=== PATIENT | female | born 1945 | race Two or more races ===

== ENCOUNTER 2016-06-08 17:38 | Emergency (ER) | payer MEDICARE, BC ==
[2016-06-08 17:42] VITALS: RESP 20
--- NOTE | 2016-06-08 18:50 | ED ---
Extremity Problem HPI - General Chief complaint: Extremity Problem,Nontraumatic Stated complaint: leg pain Time Seen by Provider: 06/08/16 18:22 Source: patient Mode of arrival: wheelchair Limitations: no limitations - History of Present Illness Initial comments: 70-year-old female patient presents emergency department for evaluation of right calf pain, redness, and swelling. That symptoms started over the last couple of days. Patient has any recent travel, prolonged immobility, or injury to the leg. He states the pain increases when she walks, or touches the area. She denies any headache, dizziness, weakness, chest pain, shortness of breath, abdominal pain, nausea, vomiting, constipation, diarrhea, dysuria, hematuria or urinary urgency, or urinary frequency. Patient denies any fever or chills. Denies any numbness or tingling to the extremity. - Related Data Home Medications Medication Instructions Recorded Confirmed Aspirin 325 mg PO DAILY PRN 06/08/16 06/08/16 Previous Rx's Medication Instructions Recorded Ibuprofen [Motrin] 600 mg PO Q8HR PRN #30 tab 06/08/16 Allergies Allergy/AdvReac Type Severity Reaction Status Date / Time metronidazole Allergy Unknown Verified 06/08/16 18:29 Review of Systems ROS Statement: Those systems with pertinent positive or pertinent negative responses have been documented in the HPI. ROS Other: All systems not noted in ROS Statement are negative. Past Medical History Past Medical History: Thyroid Disorder History of Any Multi-Drug Resistant Organisms: None Reported Past Surgical History: Hysterectomy, Tonsillectomy Past Psychological History: No Psychological Hx Reported Smoking Status: Current every day smoker Past Alcohol Use History: None Reported Past Drug Use History: None Reported General Exam Limitations: no limitations General appearance: alert, in no apparent distress Eye exam: Present: normal appearance, PERRL, EOMI. Absent: scleral icterus, conjunctival injection, periorbital swelling ENT exam: Present: normal exam, mucous membranes moist Neck exam: Present: normal inspection. Absent: tenderness, meningismus, lymphadenopathy Respiratory exam: Present: normal lung sounds bilaterally. Absent: respiratory distress, wheezes, rales, rhonchi, stridor Cardiovascular Exam: Present: regular rate, normal rhythm, normal heart sounds. Absent: systolic murmur, diastolic murmur, rubs, gallop, clicks GI/Abdominal exam: Present: soft, normal bowel sounds. Absent: distended, tenderness, guarding, rebound, rigid Extremities exam: Present: full ROM, normal capillary refill, other (Tenderness over palpable cord on the right medial calf. Overlying erythema.). Absent: pedal edema, joint swelling, calf tenderness Back exam: Present: normal inspection Neurological exam: Present: alert, oriented X3, CN II-XII intact Psychiatric exam: Present: normal affect, normal mood Skin exam: Present: warm, dry, intact, normal color. Absent: rash Course Vital Signs 06/08/16 17:40 Temperature 98.1 F Pulse Rate 81 Respiratory 20 Rate Blood Pressure 117/69 O2 Sat by Pulse 99 Oximetry Medical Decision Making - Medical Decision Making 4-year-old female patient presented with complaints of right calf pain, erythema , and tenderness. Ultrasound venous duplex of the right lower extremity reveals a superficial venous thrombus. Patient instructed to utilize ibuprofen , warm compresses and compression stockings. Patient instructed to follow up with vascular. Instructed to return for any new, worsening, or concerning symptoms. Patient verbalizes understanding and agrees this plan. - Radiology Data Radiology results: report reviewed Ultrasound is duplex of the right lower extremity shows no evidence of deep venous emesis. There is some minimal superficial vein thrombus and the calf. Disposition Clinical Impression: Acute superficial venous thrombosis of right lower extremity Disposition: HOME SELF-CARE Condition: Stable Instructions: Superficial Thrombophlebitis (ED) Additional Instructions: Warm compresses to the site. Take NSAIDs for pain relief. Utilize compression stockings. Prescriptions: Ibuprofen [Motrin] 600 mg PO Q8HR PRN #30 tab PRN Reason: Pain Referrals: Ping Garcia MD [Primary Care Provider] - 1-2 days Scott Jeffery MD [STAFF PHYSICIAN] - 1-2 days Time of Disposition: 19:54
--- NOTE | 2016-06-08 19:47 | US ---
EXAMINATION TYPE: US venous doppler duplex LE RT DATE OF EXAM: 06/08/2016 7:42 PM COMPARISON: No previous CLINICAL HISTORY: Pain. Right calf area of pain and swelling SIDE PERFORMED: Right VESSELS IMAGED: External Iliac Vein (EIV) Common Femoral Vein Deep Femoral Vein Greater Saphenous Vein * Femoral Vein Popliteal Vein Small Saphenous Vein * Proximal Calf Veins (* superficial vessels) Right Leg: Appears negative for DVT, scanned right calf area of pain: thrombus seen within superfici al vessel IMPRESSION: No evidence of deep venous thrombosis. There is some minimal superficial vein thrombus i n the calf.
[2016-06-08 19:59] VITALS: BP 121/60; PULSE 77; TEMP 98.7
== END 2016-06-08 20:03 | disposition home or self-care (01) ==
LOC: EC 17:38
DX: I82.811 Embolism and thrombosis of superficial veins of right lower extremity (principal); F17.200 Nicotine dependence, unspecified, uncomplicated; Z88.1 Allergy status to other antibiotic agents
CPT/HCPCS: 99283

== ENCOUNTER 2016-11-05 07:34 | Day surgery (SDC) | payer MEDICARE, BC ==
[2016-10-31 13:19] VITALS: BMI 21.9
[~2016-11-05 07:34] MED LIST: LACTATED RINGERS 1,000 ML IV SCH
[2016-11-05 08:15] VITALS: TEMP 97
[2016-11-05] MEDS ORDERED: LIDOCAINE 1% 20 ML VIAL (10MG/ML) FOR IV START INTRADERMA ONE (08:25)
[2016-11-05] MEDS ORDERED: PROPOFOL 10 MG/ML 20 ML VIAL IV ONE (08:27)
--- NOTE | 2016-11-05 08:31 | P.GSHP ---
History of Present Illness H&P Date: 11/05/16 CHIEF COMPLAINT: Colon screen HISTORY OF PRESENT ILLNESS: The patient is a 71-year-old female who presents for colon screen. Lower endoscopy was offered for further evaluation and management. PAST MEDICAL HISTORY: Please see list. PAST SURGICAL HISTORY: Please see list. MEDICATIONS: Please see list. ALLERGIES: Please see list. SOCIAL HISTORY: No illicit drug use FAMILY HISTORY: No reports of Crohn disease or ulcerative colitis. REVIEW OF ORGAN SYSTEMS: CONSTITUTIONAL: No reports of fevers or chills. PHYSICAL EXAM: VITAL SIGNS: Stable GENERAL: Well-developed pleasant in no acute distress. HEENT: No scleral icterus. Extraocular movements grossly intact. Moist buccal mucosa. NECK: Supple without lymphadenopathy. CHEST: Unlabored respirations. Equal bilateral excursions. CARDIOVASCULAR: Regular rate and rhythm. Distal 2+ pulses. ABDOMEN: Soft, nontender, nondistended. MUSCULOSKELETAL: No clubbing, cyanosis, or edema. ASSESSMENT: 1. Colon screen. PLAN: 1. Recommend proceeding with a lower endoscopy Past Medical History Past Medical History: Deep Vein Thrombosis (DVT) Additional Past Medical History / Comment(s): DVT RLE 05/2016 History of Any Multi-Drug Resistant Organisms: None Reported Past Surgical History: Hysterectomy, Tonsillectomy Additional Past Surgical History / Comment(s): PARTIAL THYROIDECTOMY. COLONOSCOPY. BILAT CATARACTS REMOVED Past Anesthesia/Blood Transfusion Reactions: No Reported Reaction Smoking Status: Current every day smoker - Past Family History Mother Family Medical History: No Reported History Medications and Allergies Home Medications Medication Instructions Recorded Confirmed Type Aspirin [Adult Low Dose Aspirin EC] 81 mg PO DAILY 10/31/16 10/31/16 History Allergies Allergy/AdvReac Type Severity Reaction Status Date / Time metronidazole Allergy Rash/Hives Verified 10/31/16 13:15 Surgical - Exam Vital Signs Temp Pulse Resp BP Pulse Ox 97.0 F L 65 18 115/68 97 11/05/16 08:13 11/05/16 08:13 11/05/16 08:13 11/05/16 08:13 11/05/16 08:13
--- NOTE | 2016-11-05 08:48 | P.PCN ---
Date of Procedure: 11/05/16 Preoperative Diagnosis: Postoperative Diagnosis: Procedure(s) Performed: Implants: Indications for Procedure: Operative Findings: Description of Procedure: PREOPERATIVE DIAGNOSIS: Colonoscopy screening. Personal history of colon polyps. POSTOPERATIVE DIAGNOSIS: Colonoscopy screening. Diverticulosis, scattered. Personal history of colon polyps. OPERATION: Colonoscopy to the ileocecal valve and appendiceal orifice. SURGEON: Cheri Bergman MD. ANESTHESIA: MAC. INDICATIONS: The patient is a 71-year-old female who presents for colonoscopy screening. Last colonoscopy was 3 years ago. Benefits and risks were described and informed consent was obtained. DESCRIPTION OF PROCEDURE: The patient had undergone Gatorade, MiraLAX and Dulcolax prep. She had been brought into the operating room and laid in the left lateral decubitus position. After adequate intravenous sedation, the rectum was examined with 2% lidocaine jelly. No external hemorrhoids were encountered. The rectal tone was within normal limits. No lesions were palpated in the rectal vault. An Olympus colonoscope was advanced until the ileocecal valve and appendiceal orifice were clearly viewed. The prep was excellent with clear visualization of the mucosal folds. The scope was removed with visualization of each mucosal fold. Scattered diverticulosis was encountered. No colonic polyps were found. No evidence of focal colitis was found. Retroflexion of the scope demonstrated grade 2 internal hemorrhoids without active bleeding or inflammation. The colon was desufflated. The patient had tolerated the procedure well. Withdrawal time was over 6 minutes. FINDINGS: Internal hemorrhoids, grade 2. External prolapsed hemorrhoids. No arteriovenous malformations. No adenomatous polyps. No focal colitis. Few scattered diverticulosis. RECOMMENDATIONS: Lower endoscopy in 5 years per screening guidelines, 2021. Plan - Discharge Summary New Discharge Prescriptions: No Action Aspirin [Adult Low Dose Aspirin EC] 81 mg PO DAILY Discharge Medication List Aspirin [Adult Low Dose Aspirin EC] 81 mg PO DAILY 10/31/16 [History] Activity/Diet/Wound Care/Special Instructions: Follow up colonoscopy, 2021 Discharge Disposition: HOME SELF-CARE
[2016-11-05 09:13] VITALS: PULSE 58
[2016-11-05 09:27] VITALS: BP 111/60; RESP 18
== END 2016-11-05 09:40 | disposition home or self-care (01) ==
LOC: ORWHC2ENDO 07:34
PROVIDERS: ATTEND Surgery Plastic and Reconstructive Surgery
DX: Z12.11 Encounter for screening for malignant neoplasm of colon (principal); K57.30 Diverticulosis of large intestine without perforation or abscess without bleeding; K64.1 Second degree hemorrhoids; Z86.010 Personal history of colon polyps; F17.200 Nicotine dependence, unspecified, uncomplicated; Z86.718 Personal history of other venous thrombosis and embolism; Z79.82 Long term (current) use of aspirin; Z88.1 Allergy status to other antibiotic agents
CPT/HCPCS: J2704; G0105; 45378

== ENCOUNTER 2018-04-14 21:45 | Emergency (ER) | payer MEDICARE, BC ==
--- NOTE | 2018-04-14 22:46 | ED ---
General Adult HPI - General Chief complaint: Skin/Abscess/Foreign Body Stated complaint: red spot on inner thigh Time Seen by Provider: 04/14/18 21:55 Source: patient, family Mode of arrival: ambulatory Limitations: no limitations - History of Present Illness Initial comments: 72-year-old female patient presents to the emergency department today for evaluation of tenderness and erythema to the medial right thigh. Patient states she has some discomfort a couple of days ago and then today noticed that the area has become red. He states it is still intermittently painful. She denies any pain radiating down the leg. Denies any numbness or tingling to the extremities. Denies any swelling to the extremity. Patient states she does have history of DVT and is concerned she may have another. She denies taking any anticoagulant or antiplatelet medications currently. Denies any use of aspirin. Patient denies any recent rash, fever, chills, shortness breath, chest pain, abdominal pain, nausea, vomiting, diarrhea, constipation, back pain, numbness, tingling, dizziness, weakness, hematuria, dysuria, urinary urgency, urinary frequency, headache, visual changes, or any other complaints. - Related Data Home Medications Medication Instructions Recorded Confirmed Cholecalciferol [Vitamin D3] 1,000 unit PO DAILY 04/14/18 04/14/18 Previous Rx's Medication Instructions Recorded Ibuprofen [Motrin] 600 mg PO Q8HR PRN #30 tab 04/14/18 Allergies Allergy/AdvReac Type Severity Reaction Status Date / Time metronidazole Allergy Rash/Hives Verified 04/14/18 22:10 Review of Systems ROS Statement: Those systems with pertinent positive or pertinent negative responses have been documented in the HPI. ROS Other: All systems not noted in ROS Statement are negative. Past Medical History Past Medical History: Deep Vein Thrombosis (DVT) Additional Past Medical History / Comment(s): DVT RLE 05/2016 History of Any Multi-Drug Resistant Organisms: None Reported Past Surgical History: Hysterectomy, Tonsillectomy Additional Past Surgical History / Comment(s): PARTIAL THYROIDECTOMY. COLONOSCOPY. BILAT CATARACTS REMOVED Past Anesthesia/Blood Transfusion Reactions: No Reported Reaction Past Psychological History: No Psychological Hx Reported Smoking Status: Current every day smoker Past Alcohol Use History: None Reported Past Drug Use History: None Reported - Past Family History Mother Family Medical History: No Reported History General Exam Limitations: no limitations General appearance: alert, in no apparent distress, other (Physical well- developed, well-nourished elderly female patient in no acute distress. Vital signs upon presentation are temperature 98.2F, pulse 86, respirations 18, blood pressure 129/63, pulse ox 97% on room air.) Respiratory exam: Present: normal lung sounds bilaterally. Absent: respiratory distress, wheezes, rales, rhonchi, stridor Cardiovascular Exam: Present: regular rate, normal rhythm, normal heart sounds. Absent: systolic murmur, diastolic murmur, rubs, gallop, clicks GI/Abdominal exam: Present: soft, normal bowel sounds. Absent: distended, tenderness, guarding, rebound, rigid Extremities exam: Present: normal inspection, full ROM, tenderness (Tenderness to the right medial thigh), normal capillary refill, other (Tenderness, induration, erythema to the right medial thigh). Absent: pedal edema, joint swelling, calf tenderness Neurological exam: Present: alert, oriented X3, CN II-XII intact Psychiatric exam: Present: normal affect, normal mood Skin exam: Present: warm, dry, intact, normal color. Absent: rash Course Vital Signs 04/14/18 04/14/18 21:50 23:38 Temperature 98.2 F 98.7 F Pulse Rate 86 85 Respiratory 18 16 Rate Blood Pressure 129/63 123/88 O2 Sat by Pulse 97 99 Oximetry Medical Decision Making - Medical Decision Making 72-year-old female patient with past medical history significant for DVT presents to the emergency department today for evaluation of redness and tenderness to the right medial thigh. Physical examination did reveal an indurated erythematous area to the right medial thigh. There is no swelling to the leg, neurovascular status intact, pulses 2+ and equal bilaterally. Ultrasound of the leg was obtained and did reveal no evidence of DVT however did show a superficial thrombophlebitis to that area. She'll be treated with anti-inflammatory medication and instructed to apply warm compresses to the area. She is instructed to follow-up with her primary care physician for recheck in 1-2 days. Return parameters were discussed in detail. She verbalizes understanding and agrees this plan. - Radiology Data Radiology results: report reviewed, image reviewed Ultrasound of the right lower extremity was obtained to rule out DVT. Report was reviewed in its entirety. Impression by Dr. Dobbins shows no evidence of DVT. Area of thigh with redness superficial thrombophlebitis is visualized. Impression shows no DVT. Mild superficial vein thrombosis is noted. Disposition Clinical Impression: Superficial thrombophlebitis of right leg Disposition: HOME SELF-CARE Condition: Good Instructions (If sedation given, give patient instructions): Superficial Thrombophlebitis (ED) Additional Instructions: Take medication as directed. Apply warm compresses to the area. Follow-up with the primary care physician for recheck in 1-2 days. Return to the emergency department immediately for any new, worsening, or concerning symptoms. Prescriptions: Ibuprofen [Motrin] 600 mg PO Q8HR PRN #30 tab PRN Reason: Pain Is patient prescribed a controlled substance at d/c from ED?: No Referrals: Ping Garcia MD [Primary Care Provider] - 1-2 days Time of Disposition: 23:26
--- NOTE | 2018-04-14 23:23 | US ---
EXAMINATION TYPE: US venous doppler duplex LE RT DATE OF EXAM: 04/14/2018 10:51 PM COMPARISON: NONE CLINICAL HISTORY: Pain. Right thigh pain with redness. SIDE PERFORMED: Right TECHNIQUE: The lower extremity deep venous system is examined utilizing real time linear array sonog manoj with graded compression, doppler sonography and color-flow sonography. VESSELS IMAGED: External Iliac Vein (EIV) Common Femoral Vein Deep Femoral Vein Greater Saphenous Vein * Femoral Vein Popliteal Vein Small Saphenous Vein * Proximal Calf Veins (* superficial vessels) Right Leg: Negative for DVT No evidence of DVT. Area of thigh with redness superficial thrombophlebitis is visualized. IMPRESSION: No evidence of deep venous thrombosis. There is mild superficial vein thrombosis noted.
[2018-04-14 23:39] VITALS: BP 123/88; PULSE 85; RESP 16; TEMP 98.7
== END 2018-04-14 23:39 | disposition home or self-care (01) ==
LOC: EC 21:45
DX: I80.01 Phlebitis and thrombophlebitis of superficial vessels of right lower extremity (principal); F17.200 Nicotine dependence, unspecified, uncomplicated; Z88.1 Allergy status to other antibiotic agents; Z86.718 Personal history of other venous thrombosis and embolism
CPT/HCPCS: 99283

== ENCOUNTER 2023-01-28 10:24 | Day surgery (SDC) | payer MEDICARE, BC ==
[2023-01-23 14:51] VITALS: BMI 24.1
--- NOTE | 2023-01-28 08:45 | P.GSHP ---
History of Present Illness H&P Date: 01/28/23 CHIEF COMPLAINT: Colon screen HISTORY OF PRESENT ILLNESS: The patient is a 77-year-old female who presents for colon screen. Lower endoscopy was offered for further evaluation and management. PAST MEDICAL HISTORY: Please see list. PAST SURGICAL HISTORY: Please see list. MEDICATIONS: Please see list. ALLERGIES: Please see list. SOCIAL HISTORY: No illicit drug use FAMILY HISTORY: No reports of Crohn disease or ulcerative colitis. REVIEW OF ORGAN SYSTEMS: CONSTITUTIONAL: No reports of fevers or chills. PHYSICAL EXAM: VITAL SIGNS: Stable GENERAL: Well-developed pleasant in no acute distress. HEENT: No scleral icterus. Extraocular movements grossly intact. Moist buccal mucosa. NECK: Supple without lymphadenopathy. CHEST: Unlabored respirations. Equal bilateral excursions. CARDIOVASCULAR: Regular rate and rhythm. Distal 2+ pulses. ABDOMEN: Soft, nontender, nondistended. MUSCULOSKELETAL: No clubbing, cyanosis, or edema. ASSESSMENT: 1. Colon screen. PLAN: 1. Recommend proceeding with a lower endoscopy Past Medical History Past Medical History: Deep Vein Thrombosis (DVT) Additional Past Medical History / Comment(s): DVT RLE 05/2016 History of Any Multi-Drug Resistant Organisms: None Reported Past Surgical History: Hysterectomy, Tonsillectomy Additional Past Surgical History / Comment(s): PARTIAL THYROIDECTOMY. C OLONOSCOPY. BILAT CATARACTS REMOVED Past Anesthesia/Blood Transfusion Reactions: No Reported Reaction Additional Past Anesthesia/Blood Transfusion Reaction / Comment(s): no blood transfusion Smoking Status: Former smoker - Past Family History Mother Family Medical History: No Reported History Medications and Allergies Home Medications Medication Instructions Recorded Confirmed Type Cholecalciferol [Vitamin D3] 1,000 unit PO DAILY 04/14/18 01/23/23 History Allergies Allergy/AdvReac Type Severity Reaction Status Date / Time metronidazole Allergy Rash/Hives Verified 01/23/23 14:25
[2023-01-28] MEDS: LACTATED RINGERS 1,000 ML IV SCH ×2 (11:01→11:12)
[2023-01-28 11:03] VITALS: TEMP 97.2
[2023-01-28] MEDS ORDERED: PROPOFOL 10 MG/ML 20 ML VIAL IV ONE (11:13)
--- NOTE | 2023-01-28 11:47 | P.PCN ---
Date of Procedure: 01/28/23 Description of Procedure: PREOPERATIVE DIAGNOSIS: Colonoscopy screening. Change in bowel habits All obstruction POSTOPERATIVE DIAGNOSIS: Colon volvulus, sigmoid Diverticulosis, scattered. OPERATION: Colonoscopy to the transverse colon SURGEON: Cheri Bergman MD. ANESTHESIA: MAC. INDICATIONS: The patient is a 77-year-old female who presents with change in bowel habits and bowel obstruction. Benefits and risks were described and informed consent was obtained. DESCRIPTION OF PROCEDURE: The patient had undergone Sutab prep. The patient had been brought into the operating room and laid in the left lateral decubitus position. After adequate intravenous sedation, the rectum was examined with 2% lidocaine jelly. No external hemorrhoids were encountered. The rectal tone was within normal limits. No lesions were palpated in the rectal vault. The scope was advanced with spiraling and pinwheel appearance of the transverse colon. The scope could not safely advanced beyond the spiral colon suspicious for volvulus. The prep was excellent. Scattered diverticulosis was encountered. No colonic polyps were found. No evidence of focal colitis was found. Retroflexion of the scope demonstrated grade 1 internal hemorrhoids without active bleeding or inflammation. The colon was desufflated. The patient had tolerated the procedure well. Withdrawal time was over 6 minutes. FINDINGS: Aronchick preparation quality scale 1 (1-5) Colon volvulus, sigmoid Internal hemorrhoids, grade 1 No external prolapsed hemorrhoids. No arteriovenous malformations. No adenomatous polyps. No focal colitis. RECOMMENDATIONS: Incomplete colonoscopy for volvulus Barium enema for volvulus Plan - Discharge Summary Discharge Rx Participant: No New Discharge Prescriptions: No Action Unable To Assess [Unable to Assess] Discharge Medication List Unable To Assess [Unable to Assess] 01/28/23 [History] Follow up Appointment(s)/Referral(s): Cheri Bergman MD [STAFF PHYSICIAN] - 02/10/23 11:45 am Patient Instructions/Handouts: Barium Enema (DC), Diverticulosis Diet (GEN), Diverticulitis (IP) Activity/Diet/Wound Care/Special Instructions: Enema for incomplete colonoscopy Discharge Disposition: HOME SELF-CARE
[2023-01-28 11:57] VITALS: RESP 16
[2023-01-28 12:25] VITALS: BP 112/64; PULSE 64
--- NOTE | 2023-01-28 17:28 | XR ---
EXAMINATION TYPE: XR abdomen 1V DATE OF EXAM: 01/28/2023 Comparison: None Clinical History: 77 year-old female INCOMPLETE COLONOSCOPY, BE PRELIM Findings: There is marked retained air throughout the colon. Impression: Marked retained air throughout the colon. We will need to delay the patient for the barium enema afte r her incomplete colonoscopy.
== END 2023-01-28 13:26 | disposition home or self-care (01) ==
LOC: ORWHC2ENDO 10:24
PROVIDERS: ATTEND Surgery Plastic and Reconstructive Surgery
DX: Z12.11 Encounter for screening for malignant neoplasm of colon (principal); K56.2 Volvulus; Z86.718 Personal history of other venous thrombosis and embolism; Z90.710 Acquired absence of both cervix and uterus; Z98.890 Other specified postprocedural states; Z87.891 Personal history of nicotine dependence; Z88.1 Allergy status to other antibiotic agents; Z79.899 Other long term (current) drug therapy
CPT/HCPCS: 74018; J2704; G0121

== ENCOUNTER → 2023-01-29 | Outpatient (CLI) | payer MEDICARE, BC ==
--- NOTE | 2023-01-29 11:51 | FL ---
EXAMINATION TYPE: FL barium enema DATE OF EXAM: 01/29/2023 COMPARISON: NONE HISTORY: incomplete colonoscopy TECHNIQUE: An air contrast barium enema study is performed. A total of 24 seconds of fluoroscopic ti me was utilized during procedure and 19 images obtained. Total dose area product (DAP) in uGy*m?, mG y*cm? (or similar): . FINDINGS: Structures Technician view of the abdomen shows overall non-obstructive bowel gas pattern. No evidence of any mass or polyp, obstructing or constricting lesion throughout the colon. There is m inimal scattered diverticular disease noted. No diverticulitis. No evidence for fungating mass or terry ular constricting lesion. Colonic redundancy seen. Appendix was filled and appeared normal. The terminal ileum was refluxed and appears within normal l imits. IMPRESSION: Rare scattered diverticula. Examination is otherwise unremarkable.
== END | disposition home or self-care (01) ==
LOC: RADFLMAIN 09:30
PROVIDERS: ATTEND Surgery Plastic and Reconstructive Surgery
DX: K57.90 Diverticulosis of intestine, part unspecified, without perforation or abscess without bleeding (principal)
CPT/HCPCS: 74270

== ENCOUNTER → 2023-05-11 | Outpatient (CLI) | payer MEDICARE, BC ==
[2023-05-11 15:38] LABS: ALT 17 U/L (8-44); AST 21 U/L (13-35); Albumin 4.7 g/dL (3.8-4.9); Albumin/Globulin Ratio 1.96 Ratio (1.60-3.17); Alkaline Phosphatase 86 U/L (41-126); BUN/Creat Ratio 27.17 Ratio (12.00-20.00); Blood Urea Nitrogen 16.3 mg/dL (9.0-27.0); Calcium 10.1 mg/dL (8.7-10.3); Carbon Dioxide 26.4 mmol/L (21.6-31.8); Chloride 105 mmol/L (96-109); Globulin 2.4 g/dL (1.6-3.3); Glucose 101 mg/dL (70-110); Potassium 4.7 mmol/L (3.5-5.5); Sodium 143 mmol/L (135-145); Total Bilirubin 0.3 mg/dL (0.3-1.2); Total Protein 7.1 g/dL (6.2-8.2)
[2023-05-11 16:01] LABS: Basophils # (A) 0.04 X 10*3/uL (0.00-0.10); Basophils % (A) 0.5 %; Eosinophils # (A) 0.07 X 10*3/uL (0.04-0.35); HCT 44.6 % (37.2-46.3); HGB 14.4 g/dL (12.0-15.0); Lymphocytes # (A) 1.46 X 10*3/uL (0.90-5.00); Lymphocytes % (A) 19.9 %; MCH 29.7 pg (27.0-32.0); MCHC 32.3 g/dL (32.0-37.0); Mean Platelet Volume 9.6 FL (9.5-12.2); Monocytes # (A) 0.54 X 10*3/uL (0.20-1.00); Monocytes % (A) 7.4 %; NRBC Per 100 WBC 0 X 10*3/uL (0.00-0.01); Neutrophils # (A) 5.18 X 10*3/uL (1.80-7.70); Neutrophils % (A) 70.8 %; Platelet Count 340 X 10*3/uL (140-440); RBC 4.85 X 10*6/uL (4.10-5.20); RDW 12.5 % (11.5-14.5); WBC 7.32 X 10*3/uL (4.50-10.00)
== END | disposition home or self-care (01) ==
LOC: LABWHC1 10:10
PROVIDERS: ATTEND Surgery Plastic and Reconstructive Surgery
DX: K56.2 Volvulus (principal)
CPT/HCPCS: 36415; 80053; 85025; 86850; 86900; 86901

== ENCOUNTER 2023-05-29 09:20 | Inpatient (IN) | payer MEDICARE, BC ==
[2023-05-19 12:44] VITALS: BMI 25.6
--- NOTE | 2023-05-29 06:30 | P.GSHP ---
History of Present Illness H&P Date: 05/29/23 CHIEF COMPLAINT: History of sigmoid volvulus HISTORY OF PRESENT ILLNESS: The patient is a 77-year-old female with long- standing history of chronic constipation including large bowel obstruction secondary to sigmoid volvulus. She completed a colonoscopy which excluded underlying neoplasm. Now she presents for sigmoid colon resection. PAST MEDICAL HISTORY: Please see list. PAST SURGICAL HISTORY: Please see list. MEDICATIONS: Please see list. ALLERGIES: Please see list. SOCIAL HISTORY: No illicit drug use FAMILY HISTORY: No reports of Crohn disease or ulcerative colitis. REVIEW OF ORGAN SYSTEMS: CONSTITUTIONAL: Denies any fever or chills. HEENT: Denies any trouble with vision or nosebleeds. No difficulty swallowing. LYMPHATIC: The patient denies any lumps and bumps around the neck. ENDOCRINE: Denies any thyroid disorders. RESPIRATORY: Denies pneumonia. Denies any troubles with breathing or dyspnea on exertion. CARDIOVASCULAR: Denies any chest pain, palpitations, or recent heart attacks GASTROINTESTINAL: Has gastroesophageal reflux disease GENITOURINARY: No blood in urine. MUSCULOSKELETAL: Has back pain, stiffness, joint arthritis. NEUROLOGIC: Denies any numbness or tingling along the distal extremities. No seizure disorders or headaches. PSYCHIATRIC: Denies depression or suidical ideation. HEMATOLOGIC: Denies any abnormal bleeding or bruising. PHYSICAL EXAM: VITAL SIGNS: Stable GENERAL: Well-developed pleasant in no acute distress. HEENT: No scleral icterus. Extraocular movements grossly intact. Moist buccal mucosa. NECK: Supple without lymphadenopathy. CHEST: Unlabored respirations. Equal bilateral excursions. CARDIOVASCULAR: Regular rate and rhythm. Distal 2+ pulses. ABDOMEN: Soft, nontender, nondistended. MUSCULOSKELETAL: No clubbing, cyanosis, or edema. NERUO: Cranial nerves II through XII grossly intact PSYCH: Alert and oriented to person place and time. ASSESSMENT: 1. History of previous large bowel obstruction. 2. Sigmoid volvulus. PLAN: 1. Benefits and risks of surgical intervention particular sigmoid volvulus reviewed in detail. Robotic-assisted approach was also described. 2. She has completed an enhanced colon recovery program. 3. DVT prophylaxis. 4. Antibiotic prophylaxis. Past Medical History Past Medical History: Deep Vein Thrombosis (DVT), Vascular Disorder Additional Past Medical History / Comment(s): diverticulitis,DVT RLE 05/2016 History of Any Multi-Drug Resistant Organisms: None Reported Past Surgical History: Hysterectomy, Tonsillectomy Additional Past Surgical History / Comment(s): PARTIAL THYROIDECTOMY. COLONOSCOPY. BILAT CATARACTS REMOVED Past Anesthesia/Blood Transfusion Reactions: No Reported Reaction Additional Past Anesthesia/Blood Transfusion Reaction / Comment(s): no blood transfusion Past Psychological History: No Psychological Hx Reported Smoking Status: Former smoker Past Alcohol Use History: None Reported Additional Past Alcohol Use History / Comment(s): HAS SMOKED SINCE AGE 17 ABOUT 1 PPD quit smoking 2020 Past Drug Use History: None Reported - Past Family History Mother Family Medical History: No Reported History Medications and Allergies Home Medications Medication Instructions Recorded Confirmed Type Famotidine [Pepcid] 10 mg PO HS 05/19/23 05/19/23 History cilostazoL [Pletal] 100 mg PO BID 05/19/23 05/19/23 History Allergies Allergy/AdvReac Type Severity Reaction Status Date / Time metronidazole Allergy facial Verified 05/19/23 10:51 severe flushing
[~2023-05-29 09:20] MED LIST changes: +ACETAMINOPHEN TAB 500 MG TAB PO PRN; +ALVIMOPAN 12 MG CAPSULE PO PRN; +AMPICILLIN-SULBACTAM 3 GM in SODIUM CHLORIDE 0.9% 100 ML IVPB PRN; +Antibiotics per Pharmacy 1 EACH MISC MISCELLANE PRN; +GENTAMICIN 260 MG in SODIUM CHLORIDE 0.9% 100 ML IVPB PRN; +HYDROmorphone 0.5 MG/0.5 ML SYRINGE IVP PRN; -LACTATED RINGERS 1,000 ML IV SCH; +MIDAZOLAM 2 MG/2 ML VIAL IV PRN
[2023-05-29] MEDS: LACTATED RINGERS 1,000 ML IV SCH (12:15)
[2023-05-29 13:03] LABS: Glucose,Whole Blood 111 mg/dL (70-110)
[2023-05-29] MEDS: ONDANSETRON 4 MG/2 ML VIAL IVP PRN (13:05)
[2023-05-29] MEDS: DEXAMETHASONE SOD PHOSPHATE 4 MG/ML 1 ML VIAL IVP ONE (13:05)
[2023-05-29 13:11] LABS: Basophils # (A) 0.1 k/uL (0-0.2); Basophils % (A) 1 %; Eosinophils # (A) 0.1 k/uL (0-0.7); Eosinophils % (A) 1 %; HCT 45.4 % (34.0-46.0); HGB 14.7 gm/dL (11.4-16.0); Lymphocytes # (A) 1.4 k/uL (1.0-4.8); Lymphocytes % (A) 20 %; MCH 29.7 pg (25.0-35.0); MCHC 32.2 g/dL (31.0-37.0); MCV 92.2 fL (80.0-100.0); Mean Platelet Volume 7.1; Monocytes # (A) 0.4 k/uL (0-1.0); Monocytes % (A) 5 %; Neutrophils # (A) 5.3 k/uL (1.3-7.7); Neutrophils % (A) 73 %; Platelet Count 301 k/uL (150-450); RBC 4.93 m/uL (3.80-5.40); RDW 12.2 % (11.5-15.5); WBC 7.3 k/uL (3.8-10.6)
[2023-05-29] MEDS: MIDAZOLAM 2 MG/2 ML VIAL IVP ONE (13:15)
[2023-05-29 13:24] LABS: ALT 24 U/L (4-34); AST 34 U/L (14-36); African American GFR (CKD) >90 (>60 ml/min/1.73 sqM); Albumin 4.4 g/dL (3.5-5.0); Alkaline Phosphatase 78 U/L (38-126); Anion Gap 12 mmol/L; Blood Urea Nitrogen 17 mg/dL (7-17); Calcium 9.3 mg/dL (8.4-10.2); Carbon Dioxide 18 mmol/L (22-30); Chloride 110 mmol/L (98-107); Glucose 129 mg/dL (74-99); Non-African American GFR(CKD) 87 (>60 ml/min/1.73 sqM); Potassium 3.8 mmol/L (3.5-5.1); Sodium 140 mmol/L (137-145); Total Bilirubin 0.5 mg/dL (0.2-1.3); Total Protein 7.1 g/dL (6.3-8.2)
[2023-05-29] MEDS: HEPARIN SODIUM,PORCINE 5,000 UNIT/ML 1 ML VIAL SQ PRN (13:44)
[2023-05-29] MEDS ORDERED: fentaNYL (PF) 50 MCG/ML 2 ML AMP ONE (13:46)
[2023-05-29] MEDS ORDERED: PROPOFOL 10 MG/ML 20 ML VIAL IV ONE (13:46)
[2023-05-29] MEDS ORDERED: GLYCOPYRROLATE 0.2 MG/ML 2 ML VIAL ONE (13:46)
[2023-05-29] MEDS ORDERED: SUCCINYLCHOLINE CHLORIDE 200 MG/10 ML VIAL IV ONE (13:46)
[2023-05-29] MEDS ORDERED: ePHEDrine 50 MG/ML 1 ML VIAL ONE (13:46)
[2023-05-29] MEDS ORDERED: ROCURONIUM 10 MG/ML (5 ML VIAL) IV ONE (13:46)
[2023-05-29] MEDS ORDERED: KETOROLAC 15 MG/ML 1 ML VIAL ONE (13:46)
[2023-05-29] MEDS ORDERED: LIDOCAINE 1% INJ 10MG/ML (20 ML MDV) ONE (13:46)
[2023-05-29] MEDS ORDERED: SODIUM CHLORIDE 0.9% (PF) 10 ML VIAL ONE (13:46)
[2023-05-29] MEDS ORDERED: NEOSTIGMINE 1 MG/ML 10 ML VIAL ONE (13:46)
[2023-05-29] MEDS ORDERED: ROPIVACAINE 5 MG/ML 30 ML VIAL ONE (13:46)
[2023-05-29] MEDS: SODIUM CHLORIDE 0.9% IV ONE (14:10)
[2023-05-29] MEDS: AMPICILLIN IV ONE (14:10)
--- NOTE | 2023-05-29 14:25 | P.ANPRN ---
Procedure Note - Anesthesia - Nerve Block Performed Bilateral Erector Spinae Single Time Out Performed: Yes (1315) Date of Procedure: 05/29/23 Indication: Acute Post-Operative Pain, Dx/Pain Location (b/l abdomen), Requested by Surgeon Sedation Type: Sedate with meaningful contact maintained Preparation: Sterile Prep Position: Sitting Catheter: None Needle Types: Pajunk Needle Gauge: 21 Ultrasound used to visualize needle placement: Yes Ultrasound used to observe medication spread: Yes Injectate: 0.5% Ropivacaine (see comment for volume) (20 mL +10 mL of normal saline at each side) Blood Aspirated: No Pain Paresthesia on Injection Noted: No Resistance on Injection: Normal Image Stored and Saved: Yes Events: Uneventful and Well Tolerated
[2023-05-29] MEDS: LIDOCAINE 2%-EPI 1:100,000 20 ML VIAL SQ ONE (14:30)
[2023-05-29] MEDS: LACTATED RINGERS 1,000 ML IV ONE (14:39)
[2023-05-29] MEDS ORDERED: HYDROmorphone 1 MG/ML 1 ML SYRINGE IVP PRN (16:29)
[2023-05-29] MEDS ORDERED: BENZOCAINE/MENTHOL LOZENG 1 EACH LOZENGE MUCOUS MEM PRN (16:29)
--- NOTE | 2023-05-29 16:38 | P.OP ---
Date of Procedure: 05/29/23 Description of Procedure: SURGEON: JEANNIE POPE MD PREOPERATIVE DIAGNOSES: 1. Sigmoid volvulus with intermittent bowel obstruction and abdominal pain 2. Peripheral vascular occlusive disease 3. Remote tobacco abuse disorder 4. Gastroesophageal reflux disease 5. Dysphagia POSTOPERATIVE DIAGNOSES: 1. Sigmoid volvulus with intermittent bowel obstruction and abdominal pain 2. Peripheral vascular occlusive disease 3. Remote tobacco abuse disorder 4. Gastroesophageal reflux disease 5. Dysphagia OPERATION: 1. Robotic-assisted daVinci Xi sigmoid colectomy with low anterior resection using 29 mm Ethicon powered stapler 2. Intraoperative colonoscopy used for sigmoidoscopy Anesthesia: GETA, local, regional Estimated Blood Loss (ml): 5 Pathology: 1. Sigmoid colon 2. EEA donuts 3. Proximal colotomy Condition: stable Disposition: floor COMPLICATIONS: None. Operative Findings: 1. Nonattached cecum moderately redundant extended into the pelvis with risk of cecal bascule 2. Anastomosis with EEA stapler 29 mm 3. No tension or torsion along the anastomosis 4. Doughnuts thick and both sides and viable 5. Moderately redundant sigmoid colon without tension at anastomosis 6. Negative leak test with viable anastomosis. INDICATIONS: The patient is a 77-year-old female who presents with change in bowel habits, intermittent bowel obstruction due to sigmoid volvulus. She reports family history her mother also had volvulus. Benefits and risks of surgical intervention was described in detail including infection, injury to the ureter, colostomy creation, possibility for additional surgery was discussed at length. Informed consent was obtained. All questions of the patient were answered. DESCRIPTION: Earlier the patient had undergone a bowel prep using the enhanced colon recovery program. The patient was transferred to the operating room and placed supine. After general induction, the abdomen was prepped and draped in standard sterile fashion. Ioban was placed along the abdomen to minimize any contamination of skin floor. A Maldonado catheter was placed. After a timeout protocol was performed, attention was then brought to the left upper quadrant whereby a 0 degree 5 mm laparoscopic trocar entry was performed. The abdominal cavity was entered and insufflated to 15 mmHg pressure, which was tolerated well. Diagnostic laparoscopy confirmed moderately redundant sigmoid colon including redundant cecum extending deep into the pelvis with risk of cecal bascule. The small bowel was unremarkable. Next a robotic 12-mm trocar was placed along the right lateral abdominal wall 20 cm superior from the pelvis. Two 8 mm ports were placed along the upper abdomen. Ports were placed 10 cm apart from each other including 20 cm away from the target anatomy of the left pelvis. The 12-mm port was exchanged for an 8 mm robotic port at the left upper quadrant. The robot was docked along the left lateral abdomen. The patient was positioned in steep Trendelenburg position at 21-degrees. Using atraumatic graspers and vessel sealer, the robotic system was docked and primed as described. Instruments were interchanged by the district administrative assistant including hook cautery, needle regional company hazmat tanker driver, robotic stapler and vessel sealer. The robot stapler was prepared along the right lateral abdominal wall. The stapler 12-mm port was arranged along the right lateral abdominal wall. Next, attention was brought to identify the sigmoid colon. A stay suture using 3- 0 silk was placed along the anterior serosa of the redundant sigmoid colon. The sigmoid mesentery was mobilized using a vessel sealer whereby the descending colon was marked and tagged. Using multiple fires of the robot stapler 60 mm green load, the proximal sigmoid colon was divided. The mesentery of the sigmoid colon was mobilized towards the pelvic brim and sacral promontory using a vessel sealer. The sigmoid volvulus was reduced with viable colon. Next, the sigmoid colon was divided using the robotic stapler 60 mm green staple loads. The rest of the sigmoid colon mesentery was mobilized using vessel sealer. Additionally, the sigmoid colon was mobilized onto the colon to avoid injury to the ureters. I went to the foot of the bed to confirm sizers and placement of 29-mm Ethicon powered stapler. I re-scrubbed into the case. The robotic arms were temporarily undocked. A 29-mm anvil was placed with a 3-0 silk sutured at the tip of the anvil color grinder. Then the anvil was placed via the left upper quadrant 12 mm port. All robotic arms were re-docked. I went back to the console. The staple line was opened using cautery. The anvil was entered into the proximal descending colon. The colotomy was closed using 60 mm green load. Next, the sharp tip of the anvil color grinder was brought through the staple line. The anvil color grinder was removed from the abdomen using empty clip appliers. I went to the foot of the bed to place the powered Ethicon 29 mm stapler via the rectum. The anvil and stapler were mated for 1 minute. The doughnuts were intact on both sides and thick. An intraoperative leak test was performed as I inserted the colonoscope to the anastomosis. Endoscopic images were obtained. Irrigation was placed in the pelvis and no air leaks were identified. Irrigation fluid was aspirated from the pelvis until dry. I went back to the console. All sponges and needles were removed from the abdominal cavity. The robot was undocked. I re-scrubbed into the case. Via the left upper quadrant port, the sigmoid colon was removed using 15 mm Endo Catch bag. All sponges were removed from the abdominal cavity. The left upper quadrant incision was widened to 3-cm. No contamination had occurred throughout the case. The fascial defect was oversewn using 0 Vicryl and a Edvin Chang. Next all pneumoperitoneum was evacuated from the abdominal cavity. The 8-mm trocar sites were reapproximated using 4-0 Monocryl in an interrupted subcuticular fashion. Local anesthetic was infiltrated to all wounds for postop analgesia. All incisions were also cleansed with diluted hydrogen peroxide. An Ag advance surgical dressing was placed over the colon extraction site. Liquid glue was applied to the rest of the skin incisions. The patient had tolerated the procedure well. The patient was extubated successfully. The patient was transferred to the postanesthesia care unit in stable condition. Intraoperative findings were described in detail to the patient's family. Console time: 61 minutes
[2023-05-29] MEDS: SODIUM CHLORIDE 0.9% 1,000 ML IV ONE (17:50)
[2023-05-29] MEDS: KETOROLAC 15 MG/ML 1 ML VIAL IVP SCH (18:00)
[2023-05-29] MEDS: ONDANSETRON 4 MG/2 ML VIAL IVP SCH (18:00)
[2023-05-29] MEDS: SODIUM CHLORIDE 0.9% 1,000 ML IV SCH (21:00)
[2023-05-29] MEDS: HEPARIN SODIUM,PORCINE 5,000 UNIT/ML 1 ML VIAL SQ SCH (21:04)
[2023-05-29] MEDS: SIMETHICONE 40 MG/0.6 ML DROPS 2,000 MG/30 ML BOTTLE PO SCH (21:47)
[2023-05-30] MEDS: PIPERACILLIN-TAZOBACTAM 3.375 GM in SODIUM CHLORIDE 0.9% 100 ML IVPB SCH (00:04)
[2023-05-30 07:51] LABS: Basophils % (A) 0 %; Eosinophils % (A) 0 %; HCT 36.9 % (34.0-46.0); HGB 11.9 gm/dL (11.4-16.0); Lymphocytes # (A) 1.3 k/uL (1.0-4.8); Lymphocytes % (A) 13 %; MCH 29.8 pg (25.0-35.0); MCHC 32.2 g/dL (31.0-37.0); MCV 92.7 fL (80.0-100.0); Mean Platelet Volume 7.8; Monocytes # (A) 0.7 k/uL (0-1.0); Monocytes % (A) 7 %; Neutrophils # (A) 7.9 k/uL (1.3-7.7); Neutrophils % (A) 78 %; Platelet Count 255 k/uL (150-450); RBC 3.98 m/uL (3.80-5.40); RDW 12.5 % (11.5-15.5); WBC 10.1 k/uL (3.8-10.6)
[2023-05-30] MEDS: ALVIMOPAN 12 MG CAPSULE PO SCH (08:10)
[2023-05-30 08:56] LABS: African American GFR (CKD) >90 (>60 ml/min/1.73 sqM); Anion Gap 8 mmol/L; Blood Urea Nitrogen 9 mg/dL (7-17); Calcium 8.1 mg/dL (8.4-10.2); Carbon Dioxide 18 mmol/L (22-30); Chloride 109 mmol/L (98-107); Glucose 103 mg/dL (74-99); Non-African American GFR(CKD) >90 (>60 ml/min/1.73 sqM); Sodium 135 mmol/L (137-145)
--- NOTE | 2023-05-30 13:22 | P.PN ---
Progress Note - Text Progress Note Date: 05/30/23 Patient is status post Seda fundoplication. He is tolerating diet. He is okay for discharge. Incisions are clean dry and intact. Patient has discharge instructions and prescription sent.
[2023-05-30 23:35] LABS: HCT 33.8 % (34.0-46.0); HGB 11.2 gm/dL (11.4-16.0); MCH 30.9 pg (25.0-35.0); MCHC 33.2 g/dL (31.0-37.0); MCV 93.1 fL (80.0-100.0); Mean Platelet Volume 7.9; Platelet Count 234 k/uL (150-450); RBC 3.63 m/uL (3.80-5.40); RDW 12.5 % (11.5-15.5); WBC 9.3 k/uL (3.8-10.6)
[2023-05-31 06:40] LABS: HCT 34.9 % (34.0-46.0); HGB 11.3 gm/dL (11.4-16.0); MCH 30.5 pg (25.0-35.0); MCHC 32.4 g/dL (31.0-37.0); MCV 93.9 fL (80.0-100.0); Mean Platelet Volume 7.4; Platelet Count 252 k/uL (150-450); RBC 3.72 m/uL (3.80-5.40); RDW 12.4 % (11.5-15.5); WBC 7.7 k/uL (3.8-10.6)
--- NOTE | 2023-05-31 10:28 | P.PN ---
Subjective Progress Note Date: 05/31/23 Patient still has complaints of incisional pain. She is unable to get out of bed easily. He is tolerating clear liquids. Objective - Vital Signs Vital signs: Vital Signs Temp 98.2 F 05/31/23 07:06 Pulse 73 05/31/23 07:06 Resp 17 05/31/23 07:06 BP 120/63 05/31/23 07:06 Pulse Ox 93 L 05/31/23 07:06 FiO2 Intake & Output 05/30/23 05/31/23 05/31/23 18:59 06:59 18:59 Other: Voiding Method Toilet Toilet # Voids 1 1 - Gastrointestinal Gastrointestinal Comment(s): Abdomen is soft. Incision sites are clean dry intact. - Labs CBC & Chem 7: 05/31/23 05:46 05/30/23 06:46 Labs: Abnormal Lab Results - Last 24 Hours (Table) 05/30/23 05/31/23 Range/Units 21:47 05:46 RBC 3.63 L 3.72 L (3.80-5.40) m/uL Hgb 11.2 L 11.3 L (11.4-16.0) gm/dL Hct 33.8 L (34.0-46.0) % Assessment and Plan Assessment: Status post low anterior section. Patient will have her diet advanced.
[2023-06-01 06:52] LABS: Basophils % (A) 0 %; Eosinophils # (A) 0.1 k/uL (0-0.7); Eosinophils % (A) 1 %; HCT 36.1 % (34.0-46.0); HGB 11.9 gm/dL (11.4-16.0); Lymphocytes % (A) 12 %; MCH 30.5 pg (25.0-35.0); MCHC 32.9 g/dL (31.0-37.0); MCV 92.6 fL (80.0-100.0); Mean Platelet Volume 7.3; Monocytes # (A) 0.3 k/uL (0-1.0); Monocytes % (A) 3 %; Neutrophils # (A) 7.6 k/uL (1.3-7.7); Neutrophils % (A) 84 %; Platelet Count 259 k/uL (150-450); RDW 12.2 % (11.5-15.5); WBC 9.1 k/uL (3.8-10.6)
[2023-06-01 07:12] LABS: African American GFR (CKD) >90 (>60 ml/min/1.73 sqM); Anion Gap 4 mmol/L; Blood Urea Nitrogen 6 mg/dL (7-17); Calcium 8.6 mg/dL (8.4-10.2); Carbon Dioxide 25 mmol/L (22-30); Chloride 106 mmol/L (98-107); Glucose 117 mg/dL (74-99); Non-African American GFR(CKD) >90 (>60 ml/min/1.73 sqM); Sodium 135 mmol/L (137-145)
[2023-06-01] MEDS: METOCLOPRAMIDE 5 MG/ML 2 ML VIAL IVP PRN (08:34)
[2023-06-01] MEDS: ACETAMINOPHEN TAB 500 MG TAB PO SCH (12:09)
--- NOTE | 2023-06-01 15:10 | P.PN ---
Subjective Progress Note Date: 06/01/23 CHIEF COMPLAINT: Volvulus HISTORY OF PRESENT ILLNESS: Patient is status post lower anterior resection. S he had some nausea this morning. She is having bloody bowel movements. Reports pain with movement. Patient reporting feeling weak and difficulty with mobility. Afebrile. WBC 9.1 Hgb 11.9 platelets 259 sodium 135 potassium 4.0 creatinine 0.50 PHYSICAL EXAM: VITAL SIGNS: Reviewed GENERAL: Well-developed in no acute distress. HEENT: No sclera icterus. Extraocular movements grossly intact. Moist buccal mucosa. Head is atraumatic, normocephalic. Hears conversational speech. No nasal draina ge. NECK: Supple without lymphadenopathy. CHEST: Non-labored respirations and equal bilateral excursions. CARDIOVASCULAR: Palpable 2+ radial pulses. ABDOMEN: Soft. Nondistended. MUSCULOSKELETAL: No clubbing or cyanosis. NEUROLOGIC: No focal or lateralizing signs. Cranial nerves II through XII grossly intact. PSYCH: Appropriate affect. Alert and oriented to person, place and time. SKIN: Well perfused. Good skin turgor. ASSESSMENT: 1. Sigmoid volvulus with intermittent bowel obstruction and abdominal pain 2. Peripheral vascular occlusive disease 3. Remote tobacco abuse disorder 4. Gastroesophageal reflux disease 5. Dysphagia PLAN: -Continue low fiber diet -Hemoglobin checked this morning is stable at 11.9 -Discontinue subcu heparin -Discontinue Zosyn -Consult PT OT -Consult social work for home care -Check iron panel -Anticipate discharge tomorrow Physician Dimmer Board Operator note has been reviewed by physician. Signing provider agrees with the documented findings, assessment, and plan of care. Objective - Vital Signs Vital signs: Vital Signs Temp 98.1 F 06/01/23 07:05 Pulse 72 06/01/23 07:05 Resp 18 06/01/23 07:05 BP 158/79 06/01/23 07:05 Pulse Ox 93 L 06/01/23 09:54 FiO2 Intake & Output 05/31/23 06/01/23 06/01/23 18:59 06:59 18:59 Other: Voiding Method Toilet # Voids 1 1 - Labs CBC & Chem 7: 06/01/23 06:29 06/01/23 06:29 Labs: Abnormal Lab Results - Last 24 Hours (Table) 06/01/23 Range/Units 06:29 Sodium 135 L (137-145) mmol/L BUN 6 L (7-17) mg/dL Creatinine 0.50 L (0.52-1.04) mg/dL Glucose 117 H (74-99) mg/dL
[2023-06-01 22:13] LABS: % Iron Saturation 22.98 (12.00-45.00)
[2023-06-02 11:15] LABS: HCT 34.4 % (37.2-46.3); HGB 11.2 g/dL (12.0-15.0); MCHC 32.6 g/dL (32.0-37.0); MCV 92.2 FL (80.0-97.0); Mean Platelet Volume 9.8 FL (9.5-12.2); NRBC Per 100 WBC 0 X 10*3/uL (0.00-0.01); Platelet Count 302 X 10*3/uL (140-440); RBC 3.73 X 10*6/uL (4.10-5.20); RDW 12.4 % (11.5-14.5); WBC 10.48 X 10*3/uL (4.50-10.00)
--- NOTE | 2023-06-02 14:40 | P.DS ---
Providers Date of admission: 05/29/23 11:38 Expected date of discharge: 06/02/23 Attending physician: Cheri Bergman Consults: 05/29/23 06:27 Consult Physician Routine Consulting Provider: [facility] Consult Reason/Comments: Regional block Do you want consulting provider notified?: Yes Primary care physician: Shamar [facility] Course: Discharge diagnosis 1. Sigmoid volvulus with intermittent bowel obstruction and abdominal pain 2. Peripheral vascular occlusive disease 3. Remote tobacco abuse disorder 4. Gastroesophageal reflux disease 5. Dysphagia Hospital course The patient is a 77-year-old female who presents with change in bowel habits, intermittent bowel obstruction due to sigmoid volvulus. Patient is status post Robotic-assisted daVinci Xi sigmoid colectomy with low anterior resection. Patient tolerated surgery well. Her pain is controlled. She has been up and ambulating. She is work with physical therapy they are recommending a walker at discharge. This has been arranged through watch case polisher. Patient tolerating diet. She is afebrile. She is stable for discharge. Physician Dredge Worker note has been reviewed by physician. Signing provider agrees with the documented findings, assessment, and plan of care. Patient Condition at Discharge: Stable Plan - Discharge Summary Discharge Rx Participant: No New Discharge Prescriptions: New Cyclobenzaprine [Flexeril] 10 mg PO TID #30 tab Ibuprofen [Motrin] 600 mg PO Q8HR PRN #30 tab PRN Reason: Pain Acetaminophen Tab [Tylenol Tab] 1,000 mg PO Q6HR PRN #30 tablet PRN Reason: Pain Continue cilostazoL [Pletal] 100 mg PO BID Famotidine [Pepcid] 10 mg PO HS Discharge Medication List Famotidine [Pepcid] 10 mg PO HS 05/19/23 [History] cilostazoL [Pletal] 100 mg PO BID 05/19/23 [History] Acetaminophen Tab [Tylenol Tab] 1,000 mg PO Q6HR PRN #30 tablet 05/29/23 [Rx] Cyclobenzaprine [Flexeril] 10 mg PO TID #30 tab 05/29/23 [Rx] Ibuprofen [Motrin] 600 mg PO Q8HR PRN #30 tab 05/29/23 [Rx] Follow up Appointment(s)/Referral(s): Cheri Bergman MD [STAFF PHYSICIAN] - 06/02/23 4:30 pm (TelehealthDr. Bergman called you at home between 8 AM and 8 PM) [facility] Visiting Nurse, [NON-STAFF] - 1-2 Days ([facility] will call you to schedule your in home nursing, physical therapy, and occupational therapy visits. ) Patient Instructions/Handouts: Colectomy Diet (DC), Laparoscopic Bowel Resection (DC) Activity/Diet/Wound Care/Special Instructions: Patient requires a walker due to unsteady gait caused by pain from bowel surgery and history of arthritis. Telehealth, Dr. Bergman called you at home between 8 AM and 8 PM EXPECT BOWEL MOVEMENT WITH BLOOD FOR 1 WEEK TAKE LAXATIVE FOR CONSTIPATION AFTER 4 DAYS, 06/02/23 Wear abdominal binder for comfort. No lifting over 4 pounds in 4 weeks June 28July shower. No bath tub soaks for two weeks until June 11 Avoid steak, tough meats and seeds such as raspberry seeds. See diverticulitis, low fiber, colectomy diet Use Tylenol and ibuprofen scheduled for the next 24-48 hours for best pain relief. Use ice along incisions for today to prevent swelling. Discharge Disposition: HOME SELF-CARE
[2023-06-02 16:02] VITALS: BP 158/75; PULSE 62; RESP 18; TEMP 98.1
== END 2023-06-02 17:23 | disposition home or self-care (01) | DRG 330 ==
LOC: 2ORMAIN 11:38 → 4SSUR 16:42
PROVIDERS: ADMIT Surgery Plastic and Reconstructive Surgery; ATTEND Surgery Plastic and Reconstructive Surgery
PROC: 8E0W4CZ Robotic Assisted Procedure of Trunk Region, Percutaneous Endoscopic Approach (ICD-10-PCS; 2023-05-29)
PROC: 3E0T3BZ Introduction of Anesthetic Agent into Peripheral Nerves and Plexi, Percutaneous Approach (ICD-10-PCS; 2023-05-29)
PROC: 0DTN4ZZ Resection of Sigmoid Colon, Percutaneous Endoscopic Approach (ICD-10-PCS; principal; 2023-05-29 13:35)
DX: K56.2 Volvulus (principal); Q43.8 Other specified congenital malformations of intestine; R13.10 Dysphagia, unspecified; K21.9 Gastro-esophageal reflux disease without esophagitis; Z87.891 Personal history of nicotine dependence; Z98.42 Cataract extraction status, left eye; Z98.41 Cataract extraction status, right eye
CPT/HCPCS: 64999; 80048; 80053; 83540; 83550; 85025; 85027; 86850; 86900; 86901; 88304; 88307; 94760